=== PATIENT | male | born 1950 | race Caucasian/White ===

== ENCOUNTER 2018-06-09 15:12 | Outpatient (CLI) | END 2018-06-09 15:13 | disposition home or self-care (01) | LOC: FCC-LAB 15:12 | PROVIDERS: ATTEND Family Medicine | DX: J42 Unspecified chronic bronchitis (principal); N52.9 Male erectile dysfunction, unspecified; M54.5 Low back pain; G89.29 Other chronic pain; M79.604 Pain in right leg; M79.605 Pain in left leg; I73.9 Peripheral vascular disease, unspecified; E78.5 Hyperlipidemia, unspecified | CPT/HCPCS: 36415; 80053; 80061; 85025 ==

== ENCOUNTER 2018-07-07 14:23 | Outpatient (CLI) | payer OTHER | END 2018-07-07 14:24 | disposition home or self-care (01) | LOC: FCC-LAB 14:23 | PROVIDERS: ATTEND Family Medicine | DX: Z51.81 Encounter for therapeutic drug level monitoring (principal); Z79.891 Long term (current) use of opiate analgesic | CPT/HCPCS: 36415 ==

== ENCOUNTER 2018-12-23 16:41 | Emergency (ER) | payer OTHER ==
[2018-12-23 16:46] VITALS: BP 128/82; TEMP 99.1; BMI 16.2
[2018-12-23] MEDS ORDERED: DUONEB NEB STA (17:46)
--- NOTE | 2018-12-23 17:51 | ED.PDOC ---
General ED Provider: Dr. RAEGAN SARGENT Chief Complaint: Fall Stated Complaint: Shortness of breath; anterior chest wall pain. States he fell last evening after losing his balance resuling in pain to his chest, Rt rib cage, arms and foot. Has multiple bruises. NO LOC Time Seen by Physician: 17:30 Mode of Arrival: Walk-In Information Source: Patient, Assisted Living Exam Limitations: No limitations Primary Care Provider: KIRIT JALLOH Nursing and Triage Documentation Reviewed and Agree: Yes (Fell at home injured chest wall and rt foot -multiple bruises) Does patient meet sepsis criteria?: No System Inflammatory Response Syndrome: Not Applicable Sepsis Protocol: For patient's 13 years and over: Temp is 96.8 and below OR 101 and greater Pulse >90 BPM Resp >20/minute Acutely Altered Mental Status Are patient's symptoms suggestive of a new infection, such as: -Pneumonia -Skin, Soft Tissue -Endocarditis -UTI -Bone, Joint Infection -Implantable Device -Acute Abdominal Infection -Wound Infection -Meningitis -Blood Stream Catheter Infection -Unknown Respiratory Complaint Exam - Shortness of Air Complaint/Exam Onset/Duration: chronic Symptoms Are: Still present Timing: Intermittent Initial Severity: Moderate Current Severity: Moderate Character: Reports: Dyspnea at rest Aggravating: Reports: Movement, Deep breaths, Recumbent position Alleviating: Reports: Bronchodilators Associated Signs and Symptoms: Reports: Cough, Wheezing, Chest pain with cough. Denies: Chest pain, Fever, Chills, Diaphoresis, Nasal congestion, Dizziness, Calf pain, Calf swelling, Edema, Rapid breathing, Labored breathing, Decreased intake Related History: Reports: Similar episode History of Healthcare-Acquired Pneumonia: No Pulmonary Embolism Risk Factors: Reports: None Cardiac Risk Factors: Reports: None Pseudomonas Risk Factors: Reports: None Tuberculosis Risk Factors: Reports: None Home Oxygen Use: No Recent Stress Test: No Recent Echo/LV Function: No Respiratory Distress: Mild Stridor Present: No Tracheal Deviation: No Subcutaneous Emphysema: No Accessory Muscle Use: No Diminished Breath Sounds: No Prolonged Expiratory Phase: No Unable to Speak Full Sentences: No Fatigue: No Leg Swelling: No Effie's Sign Present: No Grunting Respirations: No Kussmaul Respirations: No Differential Diagnoses: Chest Wall Pain, COPD Exacerbation Related Surgical History: Reports: None Review of Systems - Review Of Systems Constitutional: Reports: No symptoms Eyes: Reports: No symptoms Ears, Nose, Mouth, Throat: Reports: No symptoms Respiratory: Reports: Short of air Cardiac: Reports: No symptoms GI: Reports: No symptoms : Reports: No symptoms Musculoskeletal: Reports: Joint pain, Muscle pain Skin: Reports: Bruising Neurological: Reports: No symptoms Endocrine: Reports: No symptoms Hematologic/Lymphatic: Reports: No symptoms All Other Systems: Reviewed and Negative Past Medical History - Past Medical History Previously Healthy: No Endocrine: Reports: None Cardiovascular: Reports: Hypertension, Other (PAD) Respiratory: Reports: COPD Hematological: Reports: None Gastrointestinal: Reports: None Genitourinary: Reports: None Neuro/Psych: Reports: None Musculoskeletal: Reports: None, Arthritis Cancer: Reports: None - Surgical History General Surgical History: Reports: Unknown - Family History Family History: Reports: Unknown - Social History Smoking Status: Current every day smoker, Light tobacco smoker Hx Substance Use: No Alcohol Screening: Occasionally - Immunizations Tetanus Shot up to Date: No Physical Exam - Physical Exam Appearance: Ill-appearing, Thin Ill-appearing: Mild Pain Distress: Mild Eyes: ROSALEE, EOMI, Conjunctiva clear ENT: Ears normal, Nose normal, Oropharynx normal Neck: Supple Respiratory: Airway patent, Breath sounds diminished (chest wall tender to touch ), Rhonchi, Wheezes Cardiovascular: RRR, Pulses normal, No rub, No murmur GI/: Soft, Nontender, No masses, Bowel sounds normal, No Organomegaly Musculoskeletal: Normal strength, ROM intact, No edema, No calf tenderness Skin: Warm, Dry, Normal color (ecchymosis chest) Neurological: Sensation intact, Motor intact, Reflexes intact, Cranial nerves intact, Alert, Oriented Psychiatric: Affect appropriate, Mood appropriate Interpretation - Radiology Interpretation Radiology Interpretation By: Radiologist Xray Comments: Previous kyphoplasty; moderate degenerative arthirits;old compression fract Radiology Interpretation By: Radiologist Exam Interpreted: CT Scan (Chest CT -no acute traumatic injuries.), Other (Rt Foot;Suggestive non displaced fx base great toe-seen one view only) Critical Care Note - Critical Care Note Total Time (mins): 60 Course - Course Hematology/Chemistry: 12/23/18 18:01 12/23/18 18:01 Orders, Labs, Meds: Lab Review 12/23/18 12/23/18 12/23/18 17:50 18:01 18:01 WBC 5.75 RBC 4.64 L Hgb 14.8 Hct 43.8 MCV 94.4 H MCH 31.9 H MCHC 33.8 RDW Coeff of Jad 14.3 Plt Count 199 Immature Gran % (Auto) 0.2 Neut % (Auto) 79.0 Lymph % (Auto) 11.1 [place] % (Auto) 9.4 Eos % (Auto) 0.0 Baso % (Auto) 0.3 Immature Gran # (Auto) 0.0 Neut # (Auto) 4.5 Lymph # (Auto) 0.6 [place] # (Auto) 0.5 Eos # (Auto) 0.0 Baso # (Auto) 0.0 Puncture Site Rt rad O2 Saturation 93.0 L ABG pH 7.405 ABG pCO2 35.5 ABG pO2 65.0 L ABG HCO3 22.2 ABG Total CO2 23 ABG Base Excess -2 Gabriel Test + FiO2 % 21.0 Sodium 135.9 Potassium 4.42 Chloride 94.7 L Carbon Dioxide 27.3 Anion Gap 18.32 BUN 9.0 Creatinine 0.76 Estimated GFR (MDRD) 102.00 BUN/Creatinine Ratio 11.84 Glucose 108.3 H Calcium 9.36 Total Bilirubin 1.00 AST 41.2 ALT 20.0 Alkaline Phosphatase 79.1 Total Protein 7.46 Albumin 4.34 Globulin 3.12 Albumin/Globulin Ratio 1.39 Orders Category Date Time Status ABG DRAW REQUEST Stat CARDIO 12/23/18 17:50 Completed NEBULIZER TREATMENT Stat CARDIO 12/23/18 17:46 Completed ABG Stat LAB 12/23/18 17:50 Completed CBC W/ AUTO DIFF Stat LAB 12/23/18 18:01 Completed CMP [COMPREHENSIVE METABOLIC PANEL] Stat LAB 12/23/18 18:01 Completed Ipratropium/Albuterol Neb [Duoneb] MEDS 12/23/18 17:46 Discontinued 1 vial NEB ONCE STA CT CHEST W/O CONTRAST Stat RADS 12/23/18 17:[address] THORACIC SPINE W/O CONTRAST Stat RADS 12/23/18 18:43 Completed ELBOW, LEFT MIN 3 VIEWS Stat RADS 12/23/18 17:47 Completed FOOT, RIGHT 3 VIEWS Stat RADS 12/23/18 17:47 Completed Medications Discontinued Medications Generic Name Dose Route Start Last Admin Trade Name Freq PRN Reason Stop Dose Admin Albuterol/Ipratropium 1 vial 12/23/18 17:46 12/23/18 17:50 Duoneb NEB 12/23/18 17:47 1 vial ONCE STA Administration Vital Signs: Temp Pulse Resp BP Pulse Ox 12/23/18 16:41 99.1 F 108 H 18 128/82 93 L Departure - Departure Time of Disposition: 20:00 (Discharge delayed due critical care and transfer to a child) Disposition: HOME SELF-CARE Discharge Problem: COPD (chronic obstructive pulmonary disease), Contusion, chest wall, Fracture of great toe of right foot Instructions: Toe Fracture (ED), COPD (Chronic Obstructive Pulmonary Disease) ( ED), Contusion in Adults (ED) Condition: Fair Pt referred to PMD for follow-up: Yes (See Dr Huerta in Follow up ) IPMP verified?: No Additional Instructions: Instructions on pain mgt Domingo splint great toe injury Follow up PCP in 7 days Allergies/Adverse Reactions: Allergies No Known Allergies Allergy (Unverified 12/23/18 16:45) Home Medications: Ambulatory Orders Cilostazol 100 mg PO BID 06/09/18 Hydrocodone/Acetaminophen [Brimson 7.5-325 Tablet] 1 each PO QID 06/09/18 Disposition Discussed With: Patient
--- NOTE | 2018-12-23 19:01 | CT ---
EXAM: CT scan of the chest without contrast HISTORY: Fall, right rib pain TECHNIQUE: Helical imaging of the chest was performed without contrast. 5 mm thin axial images and coronal and sagittal reconstructions were provided for interpretation. Comparison none. FINDINGS: No acute fractures are seen. The heart is normal size. Emphysematous changes are seen th roughout the lungs. There is no pleural separation. Lungs are clear. There is hyperinflation of th e lungs bilaterally. IMPRESSION: No acute traumatic abnormalities thorax. Pulmonary emphysema.
--- NOTE | 2018-12-23 19:03 | DI ---
EXAM: Three views of the left elbow HISTORY: Fall, pain TECHNIQUE: AP lateral, oblique views of the left elbow were obtained. FINDINGS: Acute fractures are seen. There is anatomic alignment. The soft tissues are normal. IMPRESSION: No acute fracture dislocation seen within the left elbow.
--- NOTE | 2018-12-23 19:09 | CT ---
EXAM: CT thoracic spine without contrast History: Back pain. Fall. TECHNIQUE: Multi-slice transaxial helical with coronal and sagittal reformatted views. Comparison: CT chest from same day. Chest radiographs 03/14/2009. FINDINGS: A moderate compression fracture of T8 is seen, not significantly changed since 2008. A mild compress ion fracture of L1 with prior kyphoplasty is seen. Mild compression fracture of T7 is also seen whic h does not appear significantly changed. Otherwise the visualized vertebral body heights appear pres erved. Lower cervical moderate to advanced disc space narrowing with small endplate osteophytes are seen. Minimal multilevel thoracic disc space narrowing with small endplate osteophytes are seen. No evidence of listhesis is seen. There is accentuated thoracic kyphosis. No evidence of acute appear ing thoracic spine fracture is seen. No significant central canal narrowing is seen. No evidence of displaced posterior rib fracture is seen. Atherosclerosis is present. Emphysematous changes of the lungs are present. 4 mm pulmonary nodule along the left major fissure in the left upp er lobe is present. The bones are osteopenic. Impression: 1. Unchanged compression fractures of T7 and T8 when compared to 2008. 2. Mild compression fracture of L1 with prior vertebral plasty. 3. Minimal multilevel thoracic spondylosis with accentuated kyphosis. 4. Osteopenia. 5. 4 mm left upper lung pulmonary nodule. Recommend follow-up CT chest in 12 months to demonstrate stability. 6. Pulmonary emphysema.
--- NOTE | 2018-12-23 19:10 | DI ---
Exam: Right foot three views History: Fall with foot pain Findings / impression: The bones are demineralized. Nondisplaced fracture of the base of the proxim al phalanx of the great toe is suggested but seen on one view only. No additional acute bony or layla cular abnormalities are seen. Atherosclerotic vascular calcifications in the soft tissues.
== END 2018-12-23 20:20 | disposition home or self-care (01) ==
LOC: ED 16:41
DX: J44.9 Chronic obstructive pulmonary disease, unspecified (principal); S92.414A Nondisplaced fracture of proximal phalanx of right great toe, initial encounter for closed fracture; S20.219A Contusion of unspecified front wall of thorax, initial encounter; R06.02 Shortness of breath; F17.210 Nicotine dependence, cigarettes, uncomplicated; I10 Essential (primary) hypertension; I73.9 Peripheral vascular disease, unspecified; W19.XXXA Unspecified fall, initial encounter
CPT/HCPCS: 36415; 80053; 82803; 85025; 94640; 99284

== ENCOUNTER 2018-12-25 02:46 | Outpatient (CLI) | payer OTHER | END 2018-12-25 03:17 | disposition short-term general hospital (02) | LOC: AMBL 02:46 | PROVIDERS: ATTEND Family Medicine | DX: R06.03 Acute respiratory distress (principal); R05 Cough ==

== ENCOUNTER 2019-01-21 13:50 | Outpatient (CLI) ==
--- NOTE | 2019-01-21 14:29 | DI ---
EXAM: PA and lateral views of the chest HISTORY: Cough. COMPARISON: Chest x-ray 03/14/[address] chest 12/23/2018 FINDINGS: The cardiomediastinal silhouette is unchanged. There is no pneumothorax or pleural effusi on. The lungs are hyperinflated with no acute consolidation. The osseous structures demonstrate sta ble compression deformity in the mid thoracic spine and treated compression deformity at L1. There i s new compression deformity at T10 compared to 12/23/2018. IMPRESSION: 1. No acute consolidation with findings consistent with chronic obstructive pulmonary disease. 2. Interval development of compression deformity at T10 with otherwise stable compression deformitie s in the mid-thoracic spine and treated compression fracture at L1.
== END 2019-01-21 13:51 | disposition home or self-care (01) ==
LOC: RAD 13:50
PROVIDERS: ATTEND Family Medicine
DX: R06.2 Wheezing (principal); R09.89 Other specified symptoms and signs involving the circulatory and respiratory systems

== ENCOUNTER 2019-02-17 15:53 | Outpatient (CLI) | END 2019-02-17 16:14 | disposition short-term general hospital (02) | LOC: AMBL 15:53 | PROVIDERS: ATTEND Emergency Medicine | DX: S91.104A Unspecified open wound of right lesser toe(s) without damage to nail, initial encounter (principal) ==